=== PATIENT | female | born 1945 | race Caucasian/White ===

== ENCOUNTER → 2018-11-26 | Outpatient (CLI) | payer MEDICARE ==
[~2018-11-26] MED LIST: BUTA1CAP57 PO; CALC1CAP8 PO; DHEA PO; DOCU-131 PO; DOXY100T PO; ESTR0.5T3 PO; ESTR2TAB PO; GABA-826 PO; LEFL10TA PO; LEFL20TA16 PO; LEVO75TA5 PO; OMEP40CA6 PO; ONDA4TAB7 PO; OXYC-307 PO; OXYC-432 PO; PRED5TAB19 PO; PROM12.55 PO; TEMA30CA PO; TIZA4CAP PO; TIZA4CAP2 PO; TRAM-47 PO; VALA500T PO; [UNRECOGNIZED DRUG - OTHER] TP
== END | disposition home or self-care (01) ==
LOC: CFH 10:04
PROVIDERS: ATTEND Nurse Practitioner Family
DX: Z12.31 Encounter for screening mammogram for malignant neoplasm of breast (principal)
CPT/HCPCS: 77063; 77067

== ENCOUNTER → 2020-02-12 | Outpatient (CLI) | payer MEDICARE ==
[~2020-02-12] MED LIST changes: +BUPR-86 PO; +OMEP40CA42 PO; -OMEP40CA6 PO; -OXYC-432 PO; +OXYC1TAB18 PO; -PROM12.55 PO; +PROM12.57 PO; -VALA500T PO; +VALA500T8 PO
== END | disposition home or self-care (01) ==
LOC: RAD 12:47
PROVIDERS: ATTEND Nurse Practitioner Family
DX: T17.220A Food in pharynx causing asphyxiation, initial encounter (principal); K44.9 Diaphragmatic hernia without obstruction or gangrene; K21.9 Gastro-esophageal reflux disease without esophagitis; K22.8 Other specified diseases of esophagus; X58.XXXA Exposure to other specified factors, initial encounter; Y93.89 Activity, other specified; Y92.89 Other specified places as the place of occurrence of the external cause; Y99.8 Other external cause status
CPT/HCPCS: 74220